=== PATIENT | female | born 1980 | race Caucasian/White ===

== ENCOUNTER 2025-03-28 15:57 | Outpatient (CLI) | payer OTHER | END 2025-03-28 17:07 | disposition home or self-care (01) | LOC: NST 15:57 | PROVIDERS: ATTEND Obstetrics & Gynecology Gynecology | DX: Z34.83 Encounter for supervision of other normal pregnancy, third trimester (principal) ==

== ENCOUNTER 2025-03-30 16:11 | Outpatient (CLI) | payer OTHER ==
[2025-03-30 15:20] VITALS: BP 137/89
[2025-03-30] MEDS ORDERED: PRENATABS RX T1 EACH PO (16:31)
[2025-03-30] MEDS ORDERED: SYNTHROID75 MCG PO (16:31)
[2025-03-30 18:52] VITALS: BP 126/83
[2025-03-30] MEDS ORDERED: FAMOtidine 20 MG TABLET PO ONE (21:46)
[2025-03-30] MEDS ORDERED: CITRIC ACID/SODIUM CITRATE 30 ML BLIST.PACK PO ONE ×2 (21:47→22:00)
[2025-03-30] MEDS ORDERED: FAMOtidine 20 MG TABLET PO SCH (22:00)
[2025-03-30 23:16] VITALS: BP 133/87
[2025-03-31 03:19] VITALS: BP 132/85
[2025-03-31 07:36] VITALS: BP 126/81
[2025-03-31 11:15] VITALS: BP 126/81
== END 2025-03-31 11:14 | disposition home or self-care (01) ==
LOC: OBS/DEL 16:11
PROVIDERS: ATTEND Obstetrics & Gynecology
DX: O26.893 Other specified pregnancy related conditions, third trimester (principal); Z3A.37 37 weeks gestation of pregnancy

== ENCOUNTER 2025-04-05 12:37 | Inpatient (IN) | payer OTHER ==
[~2025-04-05] VITALS: Ht 162.6 cm; Wt 3.2 kg
[~2025-04-05 12:37] MED LIST: PRENATABS RX T1 EACH PO; SYNTHROID75 MCG PO
[2025-04-05] MEDS ORDERED: PEPCID AC20 MG PO (12:39)
[2025-04-05 13:03] LABS: BASO % 0.3 % (0.1-1.2); EOS # 0.09 (0.04-0.54); EOS % 0.9 % (0.7-7.0); HEMATOCRIT 37.8 % (34.1-44.9); HEMOGLOBIN 12.9 g/dL (11.2-15.7); LYMPH # 1.79 (1.18-3.74); LYMPH % 17.7 % (19.3-53.1); MEAN CORPUSCULAR HEMOGLOBIN 30.1 pg (25.6-32.2); MONO # 0.42 (0.24-0.82); MONO % 4.2 % (4.7-12.5); NEUT # 7.71 (1.56-6.13); NEUT % 76.4 % (34.0-71.1); PLATELET COUNT 244 K/uL (163-369); RED BLOOD COUNT 4.28 M/uL (3.93-5.22); RED CELL DISTRIBUTION WIDTH 13.1 % (11.6-14.4)
[2025-04-05 13:30] LABS: INR 0.95; PARTIAL THROMBOPLASTIN TIME 27.9 SECONDS (22.0-34.0); PROTHROMBIN TIME 10.4 SECONDS (9.0-11.5)
[2025-04-05 13:41] LABS: ALBUMIN 2.5 gm/dL (3.4-5.0); BILIRUBIN TOTAL 0.67 mg/dL (0.3-1.2); CALCIUM 9.3 mg/dL (8.5-10.1); CREATININE SERUM 0.65 mg/dL (0.55-1.02); GFR 99.96; GLOBULINA 3.7 G/DL (2.4-3.5); POTASSIUM 4.15 mEq/L (3.5-5.1); TOTAL PROTEIN 6.2 gm/dL (6.4-8.2)
[2025-04-12 12:31] VITALS: BP 135/88
[2025-04-12] MEDS ORDERED: MORPHINE SULFATE 4 MG/ML VIAL IV ONE (23:00)
[2025-04-12] MEDS ORDERED: KETOROLAC TROMETHAMINE 30 MG VIAL IV ONE (23:45)
[2025-04-13 01:14] LABS: BASO % 0.2 % (0.1-1.2); EOS # 0.06 (0.04-0.54); EOS % 0.4 % (0.7-7.0); HEMATOCRIT 38.4 % (34.1-44.9); LYMPH # 1.74 (1.18-3.74); LYMPH % 11.8 % (19.3-53.1); MEAN CORPUSCULAR HEMOGLOBIN 29.9 pg (25.6-32.2); MONO # 0.73 (0.24-0.82); MONO % 4.9 % (4.7-12.5); NEUT # 12.17 (1.56-6.13); NEUT % 82.3 % (34.0-71.1); PLATELET COUNT 223 K/uL (163-369); RED BLOOD COUNT 4.35 M/uL (3.93-5.22); RED CELL DISTRIBUTION WIDTH 13.5 % (11.6-14.4)
[2025-04-13 01:18] VITALS: BP 137/83
[2025-04-13] MEDS ORDERED: SIMETHICONE 125 MG CAPSULE PO SCH (03:56)
[2025-04-13] MEDS ORDERED: MEPERIDINE HCL/PF 50 MG/ML VIAL IM PRN (04:00)
[2025-04-13] MEDS ORDERED: GENTAMICIN SULFATE 40 MG/ML VIAL IV ONE (04:00)
[2025-04-13] MEDS ORDERED: CLINDAMYCIN PHOSPHATE 150 MG/ML (900mg) IV ONE (04:00)
[2025-04-13] MEDS ORDERED: PROMETHAZINE HCL 25 MG/ML AMPUL IM PRN (04:00)
[2025-04-13 05:00] VITALS: BP 133/80
[2025-04-13 08:07] LABS: BASO % 0.2 % (0.1-1.2); EOS # 0.08 (0.04-0.54); EOS % 0.6 % (0.7-7.0); HEMATOCRIT 37.2 % (34.1-44.9); HEMOGLOBIN 12.8 g/dL (11.2-15.7); LYMPH # 1.73 (1.18-3.74); LYMPH % 14.1 % (19.3-53.1); MEAN CORPUSCULAR HEMOGLOBIN 30.8 pg (25.6-32.2); MONO # 0.85 (0.24-0.82); MONO % 6.9 % (4.7-12.5); NEUT # 9.57 (1.56-6.13); NEUT % 77.8 % (34.0-71.1); PLATELET COUNT 212 K/uL (163-369); RED BLOOD COUNT 4.16 M/uL (3.93-5.22); RED CELL DISTRIBUTION WIDTH 13.5 % (11.6-14.4)
[2025-04-13 08:51] VITALS: BP 121/76
[2025-04-13] MEDS ORDERED: OxyCODONE HCL 5 MG TABLET (ROXICODONE) PO PRN (11:00)
[2025-04-13] MEDS ORDERED: KETOROLAC TROMETHAMINE 10 MG TABLET PO SCH (12:00)
[2025-04-13 18:11] VITALS: BP 129/88
[2025-04-14] VITALS: BP 122/76
[2025-04-14 05:00] VITALS: BP 118/78
[2025-04-14 08:41] VITALS: BP 134/86
[2025-04-14] MEDS ORDERED: KETO10TA2 PO (09:11)
[2025-04-14] MEDS ORDERED: OXYCODONE HCL5 MG PO (09:11)
[2025-04-14 16:39] VITALS: BP 135/84
[2025-04-15 01:00] VITALS: BP 137/75
[2025-04-15 08:00] VITALS: BP 134/80
== END 2025-04-15 12:41 | disposition home or self-care (01) | DRG 788 ==
LOC: OB/GYN 04-12 21:38 → LDR 04-20 11:44
PROVIDERS: Obstetrics & Gynecology Maternal & Fetal Medicine; ADMIT Obstetrics & Gynecology; ATTEND Obstetrics & Gynecology
PROC: 0UB00ZZ Excision of Right Ovary, Open Approach (ICD-10-PCS; 2025-04-12)
PROC: 4A1HXCZ Monitoring of Products of Conception, Cardiac Rate, External Approach (ICD-10-PCS; 2025-04-12)
PROC: 10D00Z1 Extraction of Products of Conception, Low, Open Approach (ICD-10-PCS; principal; 2025-04-12 18:45)
DX: O34.211 Maternal care for low transverse scar from previous cesarean delivery (principal); Z3A.38 38 weeks gestation of pregnancy; Z37.0 Single live birth; O34.83 Maternal care for other abnormalities of pelvic organs, third trimester; N83.291 Other ovarian cyst, right side